=== PATIENT | female | born 2000 | race Caucasian/White ===

== ENCOUNTER 2023-02-21 08:00 | Outpatient (CLI) | payer OTHER, BC ==
[2023-02-21 18:10] LABS: BILIRUBIN,URINE NEGATIVE (NEGATIVE); GLUCOSE, URINE (UA) NEGATIVE (NEGATIVE); KETONES,URINE (UA) NEGATIVE (NEGATIVE); LEUKOCYTE ESTERASE, URINE NEGATIVE (NEGATIVE); NITRITE,URINE NEGATIVE (NEGATIVE); OCCULT BLOOD,URINE NEGATIVE (NEGATIVE); PH,URINE 6.5 PH (5.0-7.5); PROTEIN,URINE NEGATIVE (NEGATIVE); UROBILINOGEN,URINE 0.2 (NORMAL) E.U./dL (NORMAL)
[2023-02-21 18:13] LABS: CLARITY,URINE CLEAR (CLEAR)
[2023-02-21 18:53] LABS: BACTERIA,URINE None Seen /HPF (None Seen); EPITHELIAL CELLS,UR FEW Transitional /HPF (<= Few); RBC,URINE None Seen /HPF (0-5); SQUAMOUS EPITHELIAL CELL,UR RARE Squamous (<= Few); WBC,URINE 0-3 /HPF (0-5)
== END 2023-02-21 23:59 | disposition home or self-care (01) ==
LOC: LAB.WC 08:00
PROVIDERS: ATTEND Obstetrics & Gynecology
DX: Z34.90 Encounter for supervision of normal pregnancy, unspecified, unspecified trimester (principal)
CPT/HCPCS: 81001; 87086

== ENCOUNTER 2023-02-26 17:06 | Emergency (ER) | payer OTHER, BC ==
[2023-02-26 17:21] VITALS: BP 116/84; O2SAT 100
--- NOTE | 2023-02-26 18:08 | ED Physician Documentation ---
PD HPI FEMALE - Stated complaint Stated Complaint: ABD PX - Chief complaint Chief Complaint: Abd Pain - History obtained from History obtained from: Patient - Additional information Additional information: 22-year-old G3, P0 with 2 prior miscarriages presents at about 7 weeks with some brown vaginal spotting for the last couple of days. She did have some mild abdominal cramping yesterday it was more in the upper abdomen however not in the suprapubic or pelvic region. She states today she had a brown spotting when she wiped and then also had some pain behind her right shoulder blade. She googled the symptoms and there was concern for ectopic and therefore she came into the ER. She Has not had any free-flowing or bright red blood. She does not have any pain at this time. She has not had any shortness of breath, chest pain, dysuria urgency or frequency. She does report a history of ovarian cyst. She has met with the OB nurse for her intake appointment but has not yet had a first trimester ultrasound or visit with the OB. Review of Systems Constitutional: reports: Reviewed and negative Cardiac: reports: Reviewed and negative Respiratory: reports: Reviewed and negative GI: reports: Abdominal Pain. denies: Abdominal Swelling, Nausea, Vomiting : reports: Vaginal bleeding. 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) - Present Medications Home Medications: Ambulatory Orders Medication Instructions Recorded Confirmed ALPRAZolam [Xanax] 0.25 mg PO ONCE PRN 02/26/23 02/26/23 FLUoxetine [PROzac] 10 mg PO DAILY 02/26/23 02/26/23 - Allergies Allergies/Adverse Reactions: Allergies Allergy/AdvReac Type Severity Reaction Status Date / Time No Known Drug Allergies Allergy Verified 02/26/23 17:17 PD ED PE NORMAL - Vitals Vital signs reviewed: Yes - General General: Alert and oriented X 3, No acute distress, Well developed/nourished - HEENT HEENT: Atraumatic, Moist mucous membranes - Cardiac Cardiac: RRR, No murmur, No gallop, No rub - Respiratory Respiratory: No respiratory distress, Clear bilaterally - Abdomen Abdomen: Normal bowel sounds, Soft, Non tender, Non distended - Back Back: No CVA TTP - Derm Derm: Normal color, Warm and dry Results - Vitals Vitals: Vital Signs - 24 hr 02/26/23 17:14 Temperature 36.4 C L Heart Rate 76 Respiratory 16 Rate Blood Pressure 116/84 H O2 Saturation 100 Oxygen O2 Source Room air - Labs Labs: Laboratory Tests 02/26/23 02/26/23 17:56 18:12 Serum HCG, Qual POSITIVE Urine Color YELLOW Urine Clarity CLEAR Urine pH 6.0 Ur Specific [place] 1.010 Urine Protein NEGATIVE Urine Glucose (UA) NEGATIVE Urine Ketones NEGATIVE Urine Occult Blood NEGATIVE Urine Nitrite NEGATIVE Urine Bilirubin NEGATIVE Urine Urobilinogen 0.2 (NORMAL) Ur Leukocyte Esterase NEGATIVE Ur Microscopic Review NOT INDICATED Urine Culture Comments NOT INDICATED - Rads (name of study) No standard instances Relevant Findings:: Prelim report reviewed, Final report received PD Medical Decision Making - ED course Complexity details: reviewed results, re-evaluated patient, considered differential, d/w patient ED course: 22-year-old female who is a G3, P0 with prior miscarriages presents with spotting during the first trimester of . The patient had some abdominal cramping yesterday but none today but did have some pain in her right shoulder blade and was concerned for possible ectopic thus presented to the ER. On arrival here, patient is hemodynamically stable, and in no distress. She is not currently bleeding and does not have any abdominal pain. We obtained urinalysis was negative for signs of infection, her test is positive and it quantitative hCG is pending. We obtained an ultrasound to evaluate for ectopic versus miscarriage versus viable and the preliminary report report shows a intrauterine approximately 6 weeks 1 day. It is quite early during and in viability difficult to determine at this point this I have recommended the patient have a repeat ultrasound within the next 1 to 2 weeks. She states she has established with a OB and will follow-up in the clinic as soon as an appointment is available. I discussed return precautions if there are any signs of increased bleeding or increasing abdominal pain or other new concerns. Departure - Departure Disposition: 01 Home, Self Care Clinical Impression: Early stage of Spotting affecting Qualifiers: Trimester: first trimester Qualified Code(s): O26.851 - Spotting complicating p regnancy, first trimester Condition: Good Instructions: Bleeding Early Preg Comments: Your ultrasound showed an early around 6 weeks. The final report is pending but you do not have an ectopic . The is still early and I recommend that you follow-up closely with OB, you will need a repeat ultr asound in the next 1 to 2 weeks. Please return if you develop heavier bleeding or other new concerns. Forms: PCP List
[2023-02-26 18:24] LABS: BILIRUBIN,URINE NEGATIVE (NEGATIVE); CLARITY,URINE CLEAR (CLEAR); GLUCOSE, URINE (UA) NEGATIVE (NEGATIVE); KETONES,URINE (UA) NEGATIVE (NEGATIVE); LEUKOCYTE ESTERASE, URINE NEGATIVE (NEGATIVE); NITRITE,URINE NEGATIVE (NEGATIVE); OCCULT BLOOD,URINE NEGATIVE (NEGATIVE); PROTEIN,URINE NEGATIVE (NEGATIVE); UROBILINOGEN,URINE 0.2 (NORMAL) E.U./dL (NORMAL)
[2023-02-26 18:39] LABS: HCG,QUALITATIVE BLOOD POSITIVE
--- NOTE | 2023-02-26 21:00 | Ultrasound Report ---
PROCEDURE: OB First Trimester w/TV INDICATIONS: first trimester bleeding, OUTSIDE/PRIOR DATING DATA: Last menstrual period (LMP): 01/09/2023. LMP-based estimated date of delivery (PHYLLIS): 10/16/2023. First dating scan (date and location): 02/26/2023. Estimated date of delivery (PHYLLIS) from first dating scan: 10/21/2023. TECHNIQUE: Real-time scanning was performed of the fetus and maternal pelvic organs, with image documentation. Endovaginal scanning was also performed to better visualize the fetus and maternal ovaries. COMPARISON: None. FINDINGS: Anteverted uterus containing a fundal gestational sac with moderate decidual response. Mean gestation al sac diameter is 1.36 cm. The cervix is closed. Embryo: A yolk sac and single pole are identified. Average crown-rump length of the fetus is 0 .42 cm corresponding to a 6 week 1 day +/- 4 day gestation. Heart rate: 81 bpm. Other: No perigestational fluid collection. Measurement variability in dating: +/- 4 weeks by LMP, +/- 7 days by mean sac diameter (use before 6 weeks gestation if crown-rump length not able to be measured), +/- 5 days by crown-rump length (6-12 weeks gestation). Maternal organs: Ovaries are normal. There is a thick-walled corpus luteum in the right ovary. IMPRESSION: 1. Single intrauterine with heart rate of 81 beats per minutes, low. This may indicat e early or a threatened . Close clinical follow-up recommended. 2. The sonographic PHYLLIS is 10/21/2023, within 5 days of the clinical PHYLLIS. 3. Preliminary results given by the psychiatric nursing assistant to the ordering provider immediately following the st udy. Reviewed by: Eufemia Fontenot MD on 02/26/2023 8:58 PM PDT Approved by: Eufemia Fontenot MD on 02/26/2023 8:58 PM PDT Station ID: [id number]
== END 2023-02-26 20:44 | disposition home or self-care (01) ==
LOC: ED 17:06
DX: O26.851 Spotting complicating pregnancy, first trimester (principal); Z3A.01 Less than 8 weeks gestation of pregnancy; O09.291 Supervision of pregnancy with other poor reproductive or obstetric history, first trimester
CPT/HCPCS: 36415; 81001; 81003; 84702; 84703; 87086; 99283; 99284

== ENCOUNTER 2023-03-05 17:09 | Outpatient (CLI) | payer OTHER ==
--- NOTE | 2023-03-05 18:25 | Ultrasound Report ---
PROCEDURE: OB First Trimester w/TV INDICATIONS: POSITIVE TEST OUTSIDE/PRIOR DATING DATA: Last menstrual period (LMP): 01/09/2023. LMP-based estimated date of delivery (PHYLLIS): 10/16/2023. First dating scan (date and location): 02/26/2023. Estimated date of delivery (PHYLLIS) from first dating scan: 10/21/2023. TECHNIQUE: Real-time scanning was performed of the fetus and maternal pelvic organs, with image documentation. Endovaginal scanning was also performed to better visualize the fetus and maternal ovaries. COMPARISON: 02/26/2023. FINDINGS: Intrauterine gestational sac present. Embryo: Length measures 0.7 cm. Estimated gestational age based on current study is 6 weeks, 4 days. Estimate d gestational age by initial ultrasound study is 7 weeks, 1 day. Heart rate: 102 bpm. Other: There is a subchorionic bleed measures 2.4 x 2.4 x 2.7 cm in size. Measurement variability in dating: +/- 4 weeks by LMP, +/- 7 days by mean sac diameter (use before 6 weeks gestation if crown-rump length not able to be measured), +/- 5 days by crown-rump length (6-12 weeks gestation). Maternal organs: Ovaries appear within normal limits. Right-sided corpus luteum is again seen. IMPRESSION: 1. Single live intrauterine gestation with fetus noted. heart rate is 10 2 bpm. Estimated gesta tional based on current study is 6 weeks, 4 days. Estimated gestational age based on initial study of 7 weeks, 1 day. 2. Subchorionic hemorrhage as above. Reviewed by: Yaron Griffith MD on 03/05/2023 6:24 PM PDT Approved by: Yaron Griffith MD on 03/05/2023 6:24 PM PDT Station ID: [id number]
== END 2023-03-05 17:10 | disposition home or self-care (01) ==
LOC: DI 17:09
PROVIDERS: ATTEND Obstetrics & Gynecology
DX: O20.9 Hemorrhage in early pregnancy, unspecified (principal); Z3A.01 Less than 8 weeks gestation of pregnancy

== ENCOUNTER 2023-03-08 11:04 | Outpatient (CLI) | payer OTHER ==
--- NOTE | 2023-03-08 12:49 | Ultrasound Report ---
PROCEDURE: OB First Trimester INDICATIONS: HEMORRHAGE IN EARLY OUTSIDE/PRIOR DATING DATA: Last menstrual period (LMP): 01/09/2023. LMP-based estimated date of delivery (PHYLLIS): 10/16/2023. First dating scan (date and location): 02/26/2023, [facility]. Estimated date of delivery (PHYLLIS) from first dating scan: 10/21/2023. TECHNIQUE: Real-time scanning was performed of the fetus and maternal pelvic organs, with image documentation. COMPARISON: OB ultrasound dated 03/05/2023, 02/26/2023 FINDINGS: Intrauterine gestational sac present. Embryo: pole measures 0.59 cm for a gestational age of 6 weeks, 3 days Heart rate: No heart tones detected. Other: There is a 1.0 x 1.5 x 1.0 cm subchorionic hemorrhage. There is a right corpus luteal cyst which measures 1.3 x 1.4 x 1.7 cm. Measurement variability in dating: +/- 4 weeks by LMP, +/- 7 days by mean sac diameter (use before 6 weeks gestation if crown-rump length not able to be measured), +/- 5 days by crown-rump length (6-12 weeks gestation). Maternal organs: Ovaries appear within normal limits. IMPRESSION: 1. pole visualized within an intrauterine gestational sac with a gestational age of 6 weeks, 3 days. No heart tones detected. Differential considerations include intrauterine demise an d early dates. Continued sonographic surveillance recommended. 2. Small subchorionic hemorrhage. Reviewed by: Vandana Ruffin MD on 03/08/2023 12:47 PM PDT Approved by: Vandana Ruffin MD on 03/08/2023 12:47 PM PDT Station ID: [id number]
[2023-03-08 21:21] LABS: CHLAMYDIA TRACHOMATIS DNA NEGATIVE (NEGATIVE); NEISSERIA GONORRHOEAE DNA NEGATIVE (NEGATIVE); TRICHOMONAS VAGINALIS DNA NEGATIVE (NEGATIVE)
== END 2023-03-08 11:05 | disposition home or self-care (01) ==
LOC: DI 11:04
PROVIDERS: ATTEND Obstetrics & Gynecology
DX: O46.91 Antepartum hemorrhage, unspecified, first trimester (principal); Z3A.01 Less than 8 weeks gestation of pregnancy
CPT/HCPCS: 87491; 87591; 87661

== ENCOUNTER 2023-04-04 17:17 | Outpatient (CLI) | payer OTHER, BC ==
[2023-04-04 18:19] LABS: PROLACTIN 10.75 ng/mL
[2023-04-04 21:09] LABS: ESTIMATED AVERAGE GLUCOSE 97 mg/dL (70-100)
[2023-04-09 13:10] LABS: BETA-2 GLYCOPROTEIN I IGG <9 (0-20); BETA-2 GLYCOPROTEIN I IGM <9 (0-32)
== END 2023-04-04 17:18 | disposition home or self-care (01) ==
LOC: LAB 17:17
PROVIDERS: ATTEND Nurse Practitioner
DX: O03.4 Incomplete spontaneous abortion without complication (principal); O26.20 Pregnancy care for patient with recurrent pregnancy loss, unspecified trimester
CPT/HCPCS: 36415; 81220; 81329; 81599; 83036; 84146; 84702; 85598; 85613; 85732; 86146

== ENCOUNTER 2023-04-10 17:20 | Outpatient (CLI) | payer OTHER, BC ==
--- NOTE | 2023-04-11 08:12 | XRAY Report ---
PROCEDURE: Foot 3 View RT INDICATIONS: SPRAIN OF UNSPECIFIED SITE OF RIGHT FOOT TECHNIQUE: 3 views of the foot were acquired. COMPARISON: None. FINDINGS: Bones: No fractures or dislocations. Mild hallux valgus configuration of the first MTP with medial b union formation. No suspicious bony lesions. Soft tissues: Radiopaque density within the soft tissues lateral to the fifth MTP joint measuring ap proximately 7 x 1 mm with associated soft tissue swelling. IMPRESSION: 1.No acute bony abnormality. If pain persists with conservative management, consider repeat x-ray in 10-14 days or cross-sectional imaging. 2.Radiopaque density within the soft tissues lateral to the fifth MTP joint measuring approximately 7 x 1 mm with associated soft tissue swelling, concerning for foreign body. Reviewed by: Pedrito Brar MD on 04/11/2023 8:11 AM PST Approved by: Pedrito Brar MD on 04/11/2023 8:11 AM PST Station ID: [id number]
--- NOTE | 2023-04-11 08:14 | XRAY Report ---
PROCEDURE: Ankle 3 View RT INDICATIONS: SPRAIN OF UNSPECIFIED SITE OF RIGHT FOOT TECHNIQUE: 3 views of the ankle were acquired. COMPARISON: None. FINDINGS: Bones: No fractures or dislocations. Ankle mortise is normally aligned. No suspicious bony lesions . Soft tissues: No tibiotalar joint effusion. Achilles tendon appears normal. Mild soft tissue swell ing over the lateral ankle. IMPRESSION: No acute bony abnormality. If pain persists with conservative management, consider repeat x-ray in 10 -14 days or cross-sectional imaging. Reviewed by: Pedrito Brar MD on 04/11/2023 8:12 AM PST Approved by: Pedrito Brar MD on 04/11/2023 8:12 AM PST Station ID: [id number]
--- NOTE | 2023-04-11 08:15 | XRAY Report ---
PROCEDURE: Knee 3 View RT INDICATIONS: SPRAIN OF UNSPECIFIED SITE OF RIGHT KNEE TECHNIQUE: 3 views of the knee(s) were acquired. COMPARISON: None. FINDINGS: Bones: No fractures or dislocations. No suspicious bony lesions. Soft tissues: No knee joint effusion. No suspicious soft tissue calcifications or masses. IMPRESSION: No acute bony abnormality. Reviewed by: Pedrito Brar MD on 04/11/2023 8:13 AM PST Approved by: Pedrito Brar MD on 04/11/2023 8:13 AM PST Station ID: [id number]
== END 2023-04-10 17:21 | disposition home or self-care (01) ==
LOC: DI 17:20
PROVIDERS: ATTEND Physician Assistant Medical
DX: S83.91XA Sprain of unspecified site of right knee, initial encounter (principal); S93.601A Unspecified sprain of right foot, initial encounter; R93.6 Abnormal findings on diagnostic imaging of limbs; R93.89 Abnormal findings on diagnostic imaging of other specified body structures

== ENCOUNTER 2023-05-01 10:45 | Outpatient (CLI) | payer OTHER, BC | END 2023-05-01 11:00 | disposition home or self-care (01) | LOC: LAB.N 10:45 | PROVIDERS: ATTEND Physician Assistant Medical | DX: R30.0 Dysuria (principal) | CPT/HCPCS: 87086 ==

== ENCOUNTER 2023-05-31 08:00 | Outpatient (CLI) | payer OTHER, BC ==
[2023-05-31 20:27] LABS: CHLAMYDIA TRACHOMATIS DNA NEGATIVE (NEGATIVE); NEISSERIA GONORRHOEAE DNA NEGATIVE (NEGATIVE); TRICHOMONAS VAGINALIS DNA NEGATIVE (NEGATIVE)
== END 2023-05-31 23:58 | disposition home or self-care (01) ==
LOC: LAB.WC 08:00
PROVIDERS: ATTEND Nurse Practitioner
DX: Z11.3 Encounter for screening for infections with a predominantly sexual mode of transmission (principal)
CPT/HCPCS: 87491; 87591; 87661

== ENCOUNTER 2023-07-12 08:00 | Outpatient (CLI) | payer BC, OTHER ==
[2023-07-12 21:41] LABS: CHLAMYDIA TRACHOMATIS DNA NEGATIVE (NEGATIVE); NEISSERIA GONORRHOEAE DNA NEGATIVE (NEGATIVE); TRICHOMONAS VAGINALIS DNA NEGATIVE (NEGATIVE)
== END 2023-07-12 23:59 | disposition home or self-care (01) ==
LOC: LAB.WC 08:00
PROVIDERS: ATTEND Nurse Practitioner
DX: Z11.3 Encounter for screening for infections with a predominantly sexual mode of transmission (principal); D50.9 Iron deficiency anemia, unspecified; Z13.9 Encounter for screening, unspecified
CPT/HCPCS: 36415; 80053; 80061; 82728; 83540; 83721; 84443; 84466; 85025; 87491; 87591; 87661

== ENCOUNTER 2023-07-12 08:35 | Outpatient (CLI) | payer OTHER, BC ==
[2023-07-12 09:03] LABS: % IRON SATURATION 11 % (20-50); ALBUMIN 4.2 g/dL (3.2-5.5); ALBUMIN/GLOBULIN RATIO 1.8 (1.0-2.2); ALKALINE PHOSPHATASE 52 IU/L (42-121); ALT ALANINE AMINOTRANSFERASE 20 IU/L (10-60); AST ASPARTATE AMINOTRANSFERASE 19 IU/L (10-42); BILIRUBIN,TOTAL 0.4 mg/dL (0.2-1.0); BUN - BLOOD UREA NITROGEN 13 mg/dL (6-20); CALCIUM 9.4 mg/dL (8.5-10.3); CARBON DIOXIDE - CO2 31 mmol/L (21-32); CHLORIDE 105 mmol/L (101-111); CHOL/HDL RATIO 2.8 (<4.4); CHOLESTEROL 173 mg/dL; CREATININE 0.7 mg/dL (0.6-1.3); GFR - MDRD 103 (>89); GLUCOSE 83 mg/dL (74-104); HDL CHOLESTEROL 61 mg/dL; IRON 34 ug/dL (50-212); POTASSIUM 4.3 mmol/L (3.5-4.5); SODIUM 140 mmol/L (135-145); TOTAL IRON BINDING CAPACITY 309 ug/dL (250-450); TOTAL PROTEIN 6.6 g/dL (6.4-8.9); TRANSFERRIN 221 mg/dL (203-362); TRIGLYCERIDES 38 mg/dL (48-352)
[2023-07-12 09:17] LABS: THYROID STIMULATING HORMONE 1.24 uIU/mL (0.34-5.60)
[2023-07-12 09:22] LABS: FERRITIN 13.9 ng/mL (11.0-306.8)
[2023-07-12 10:03] LABS: BASOPHILS % (AUTO) 0.6 %; EOSINOPHILS # (AUTO) 0.3 10^3/uL (0.0-0.7); EOSINOPHILS % (AUTO) 5.7 %; HCT - HEMATOCRIT 40.3 % (37.0-47.0); HGB - HEMOGLOBIN 13.2 g/dL (12.0-16.0); LYMPHOCYTES # (AUTO) 1.8 10^3/uL (1.5-3.5); LYMPHOCYTES % (AUTO) 35.3 %; MEAN CORPUSCULAR HEMOGLOBIN 29.3 pg (27.0-31.0); MEAN CORPUSCULAR HGB CONC 32.8 g/dL (32.0-36.0); MEAN CORPUSCULAR VOLUME 89.6 fL (81.0-99.0); MEAN PLATELET VOLUME 10.5 fL (7.9-10.8); MONOCYTES # (AUTO) 0.5 10^3/uL (0.0-1.0); MONOCYTES % (AUTO) 8.8 %; NEUTROPHILS # (AUTO) 2.5 10^3/uL (1.5-6.6); NEUTROPHILS % (AUTO) 49.4 %; PLT - PLATELET COUNT 271 10^3/uL (130-450); RED CELL DISTRIBUTION WIDTH 13.5 % (12.0-15.0); WHITE BLOOD COUNT 5.1 x10^3/uL (4.8-10.8)
== END 2023-07-12 08:36 | disposition home or self-care (01) ==
LOC: LAB 08:35
PROVIDERS: ATTEND Physician Assistant
DX: D50.9 Iron deficiency anemia, unspecified (principal); Z13.9 Encounter for screening, unspecified
CPT/HCPCS: 36415; 80053; 80061; 82728; 83540; 83721; 84443; 84466; 85025

== ENCOUNTER 2023-07-19 08:00 | Outpatient (CLI) | payer BC, OTHER ==
[2023-07-19 21:32] LABS: BACTERIAL VAGINOSIS DNA NEGATIVE (NEGATIVE)
[2023-07-19 21:33] LABS: CANDIDA GLABRATA DNA NEGATIVE (NEGATIVE); CANDIDA GROUP DNA NEGATIVE (NEGATIVE); CANDIDA KRUSEI DNA NEGATIVE (NEGATIVE); TRICHOMONAS VAGINALIS DNA NEGATIVE (NEGATIVE)
== END 2023-07-19 23:59 | disposition home or self-care (01) ==
LOC: LAB.WC 08:00
PROVIDERS: ATTEND Nurse Practitioner
DX: N89.8 Other specified noninflammatory disorders of vagina (principal)
CPT/HCPCS: 81514

== ENCOUNTER 2023-09-17 17:13 | Emergency (ER) | payer BC, OTHER ==
[2023-09-17 17:28] VITALS: O2SAT 100
--- NOTE | 2023-09-17 17:54 | ED Physician Documentation ---
PD HPI LOWER EXT INJURY - Stated complaint Stated Complaint: R KNEE PX - Chief complaint Chief Complaint: Trauma Ext - Additional information Additional information: 23-year-old female presents emergency department for right knee pain. Patient states that she was recently on vacation playing with her children and somehow lost her balance and hurt her right knee. She tried to wait it out and walk it off she had a lot of swelling and tenderness but she was hoping it would go away. Couple days ago when she was walking down the stairs she took a step onto her right foot and she felt like her right knee completely buckled with a loud popping sensation. Most of the pain is to the lateral aspect of the knee swelling has not resolved despite icing it and pain does not improve despite Tylenol ibuprofen. She has had no history of injuries to this knee in the past no history of surgeries to this knee. 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(s) : None HEENT: None Psych: Anxiety Musculoskeletal: None Derm: None - Past Surgical History Past Surgical History: Yes Cardiovascular: Other HEENT: Tonsil/Adenoidectomy - Present Medications Home Medications: Ambulatory Orders Medication Instructions Recorded Confirmed ALPRAZolam [Xanax] 0.25 mg PO ONCE PRN 02/26/23 09/17/23 FLUoxetine [PROzac] 10 mg PO DAILY 02/26/23 09/17/23 hydrOXYzine HCL [Hydroxyzine HCl] 25 mg PO BID PRN 09/17/23 09/17/23 - Allergies Allergies/Adverse Reactions: Allergies Allergy/AdvReac Type Severity Reaction Status Date / Time No Known Drug Allergies Allergy Verified 09/17/23 17:17 - Social History Does the pt smoke?: No Smoking Status: Never smoker Does the pt drink ETOH?: Yes Does the pt have substance abuse?: No - Immunizations Immunizations are current?: Yes - POLST Patient has POLST: No PD ED PE NORMAL - Vitals Vital signs reviewed: Yes - General General: Alert and oriented X 3, No acute distress, Well developed/nourished - HEENT HEENT: Atraumatic, PERRL - Derm Derm: Normal color, Warm and dry, No rash - Psych Psych: Normal mood, Normal affect PD ED PE EXPANDED - Extremities Extremities: Right knee, Pedal Pulses Present, Other (Tenderness to the lateral knee joint line. Knee effusion. Patella intact, meniscus mobileNegative anterior drawer test). No: Pedal edema R, Decreased/absent pulse Results - Vitals Vitals: Vital Signs - 24 hr 09/17/23 09/17/23 17:17 20:42 Temperature 36.4 C L 36.5 C Heart Rate 64 62 Respiratory 16 16 Rate Blood Pressure 119/85 H 122/80 O2 Saturation 100 100 Oxygen O2 Source Room air - Rads (name of study) Right knee x-rays Relevant Findings:: Final report received, EMP independent interpretation of test, Other (No acute bony abnormalities, small joint effusion.) PD Medical Decision Making - ED course ED course: 23-year-old female presents emergency department for persistent right knee pain. Differentials include but not limited to fracture, sprain, strain, ligament tear. X-ray was complete and did not reveal any acute bony abnormalities or findings making me less suspicious for possible fracture. Patient has significant swelling to the right knee and most tenderness to the lateral joint line. B ecause of this a knee immobilizer was placed although she had negative anterior drawer test it was hard to check for laxity with the swelling of the knee. Patient was told to follow-up with Ortho outpatient for further evaluation for further imaging. She was given return precautions and told that she will most likely need more advanced imaging she is offered Tylenol ibuprofen in the emergency department which she was amenable to take and was told to continue to take this at home she declined any need for narcotics at this point in time. Crutches were given to patient she was told to be nonweightbearing until she is able to follow-up with [facility]. All questions answered safe for discharge. Departure - Departure Disposition: 01 Home, Self Care Clinical Impression: Effusion, right knee Lateral collateral ligament sprain of knee Qualifiers: Encounter type: initial encounter Laterality: right Qualified Code(s): S83.421A - Sprain of lateral collateral ligament of right knee, initial encounter Instructions: ED Effusion Knee Follow-Up: [facility] [Provider Group] Comments: Thank you for trusting us with your care. As we discussed there were no fractures or dislocation found on imaging. We have placed you in a knee immobilizer and given you crutches and I want you to follow-up with Ortho outpatient. Keep your knee elevated above your heart is much as possible to help with inflammation alternate between Tylenol ibuprofen for pain and discomfort. Forms: PCP List Discharge Date/Time: 09/17/23 20:42
[2023-09-17] MEDS: IBUPROFEN 600 MG TABLET PO STA (18:29)
[2023-09-17] MEDS: ACETAMINOPHEN 325 MG TABLET PO STA (18:29)
--- NOTE | 2023-09-17 20:21 | XRAY Report ---
PROCEDURE: Knee 4+V RT INDICATIONS: Trauma TECHNIQUE: 4 views of the knee(s) were acquired. COMPARISON: None. FINDINGS: Bones: No fractures or dislocations. No suspicious bony lesions. Soft tissues: Small knee joint effusion. No suspicious soft tissue calcifications or masses. IMPRESSION: No acute bony abnormality. Small joint effusion. Reviewed by: Mik Hoover MD on 09/17/2023 8:20 PM PDT Approved by: Mik Hoover MD on 09/17/2023 8:20 PM PDT Station ID: [id number]
[2023-09-17 20:53] VITALS: BP 122/80
== END 2023-09-17 20:42 | disposition home or self-care (01) ==
LOC: ED 17:13
DX: S83.421A Sprain of lateral collateral ligament of right knee, initial encounter (principal); M25.461 Effusion, right knee; X58.XXXA Exposure to other specified factors, initial encounter; Z79.899 Other long term (current) drug therapy
CPT/HCPCS: 73564; 99283; A9270

== ENCOUNTER 2023-09-18 17:16 | Outpatient (CLI) | payer BC, OTHER ==
--- NOTE | 2023-09-19 13:30 | XRAY Report ---
PROCEDURE: Knee 4+V RT INDICATIONS: RIGHT KNEE PAIN TECHNIQUE: 4 views of the knee(s) were acquired. COMPARISON: 09/17/2023 FINDINGS: Bones: No acute displaced fracture or dislocation. Soft tissues: Small joint effusion. Small enthesophyte at the tibial tuberosity. Possible prepatellar soft tissue swelling. IMPRESSION: No acute displaced fracture. However, there may be enthesopathy at the distal patellar tendon, as wel l as small joint effusion and prepatellar soft tissue swelling. If there is high concern for further derangement, consider MRI evaluation. Reviewed by: Efe Ramirez MD on 09/19/2023 1:29 PM PDT Approved by: Efe Ramirez MD on 09/19/2023 1:29 PM PDT Station ID: [id number]
== END 2023-09-18 17:17 | disposition home or self-care (01) ==
LOC: DI 17:16
PROVIDERS: ATTEND Physician Assistant Surgical
DX: M25.561 Pain in right knee (principal)

== ENCOUNTER 2023-10-07 14:13 | Outpatient (CLI) | payer BC, OTHER ==
[2023-10-07 15:46] LABS: BILIRUBIN,URINE NEGATIVE (NEGATIVE); GLUCOSE, URINE (UA) NEGATIVE (NEGATIVE); KETONES,URINE (UA) NEGATIVE (NEGATIVE); LEUKOCYTE ESTERASE, URINE NEGATIVE (NEGATIVE); NITRITE,URINE NEGATIVE (NEGATIVE); OCCULT BLOOD,URINE NEGATIVE (NEGATIVE); PROTEIN,URINE NEGATIVE (NEGATIVE); UROBILINOGEN,URINE 0.2 (NORMAL) E.U./dL (NORMAL)
[2023-10-07 16:08] LABS: BACTERIA,URINE Rare /HPF (None Seen); CLARITY,URINE CLEAR (CLEAR); EPITHELIAL CELLS,UR FEW Transitional /HPF (<= Few); RBC,URINE 0-5 /HPF (0-5); SQUAMOUS EPITHELIAL CELL,UR FEW Squamous (<= Few); WBC,URINE 0-3 /HPF (0-5)
== END 2023-10-07 14:14 | disposition home or self-care (01) ==
LOC: LAB 14:13
PROVIDERS: ATTEND Nurse Practitioner
DX: Z34.90 Encounter for supervision of normal pregnancy, unspecified, unspecified trimester (principal)
CPT/HCPCS: 36415; 81001; 84702; 87086

== ENCOUNTER 2023-10-09 17:23 | Outpatient (CLI) | payer BC, OTHER ==
[2023-10-09 18:05] LABS: BASOPHILS # (AUTO) 0.1 10^3/uL (0.0-0.1); BASOPHILS % (AUTO) 0.6 %; EOSINOPHILS # (AUTO) 0.3 10^3/uL (0.0-0.7); EOSINOPHILS % (AUTO) 3.7 %; HCT - HEMATOCRIT 36.9 % (37.0-47.0); LYMPHOCYTES # (AUTO) 2.4 10^3/uL (1.5-3.5); LYMPHOCYTES % (AUTO) 28.3 %; MEAN CORPUSCULAR HEMOGLOBIN 28.9 pg (27.0-31.0); MEAN CORPUSCULAR HGB CONC 32.5 g/dL (32.0-36.0); MEAN CORPUSCULAR VOLUME 88.9 fL (81.0-99.0); MEAN PLATELET VOLUME 10.3 fL (7.9-10.8); MONOCYTES # (AUTO) 0.8 10^3/uL (0.0-1.0); MONOCYTES % (AUTO) 9.3 %; NEUTROPHILS # (AUTO) 4.9 10^3/uL (1.5-6.6); PLT - PLATELET COUNT 298 10^3/uL (130-450); RED BLOOD COUNT 4.15 10^6/uL (4.20-5.40); RED CELL DISTRIBUTION WIDTH 13.9 % (12.0-15.0); WHITE BLOOD COUNT 8.5 x10^3/uL (4.8-10.8)
[2023-10-09 18:11] LABS: BILIRUBIN,URINE NEGATIVE (NEGATIVE); GLUCOSE, URINE (UA) NEGATIVE (NEGATIVE); KETONES,URINE (UA) NEGATIVE (NEGATIVE); LEUKOCYTE ESTERASE, URINE NEGATIVE (NEGATIVE); NITRITE,URINE NEGATIVE (NEGATIVE); OCCULT BLOOD,URINE NEGATIVE (NEGATIVE); PH,URINE 6.5 PH (5.0-7.5); PROTEIN,URINE NEGATIVE (NEGATIVE); UROBILINOGEN,URINE 0.2 (NORMAL) E.U./dL (NORMAL)
[2023-10-09 18:12] LABS: CLARITY,URINE CLEAR (CLEAR)
[2023-10-09 18:33] LABS: BACTERIA,URINE Rare /HPF (None Seen); RBC,URINE 0-5 /HPF (0-5); SQUAMOUS EPITHELIAL CELL,UR FEW Squamous (<= Few); WBC,URINE 0-3 /HPF (0-5)
== END 2023-10-09 17:24 | disposition home or self-care (01) ==
LOC: LAB 17:23
PROVIDERS: ATTEND Nurse Practitioner
DX: Z34.90 Encounter for supervision of normal pregnancy, unspecified, unspecified trimester (principal)
CPT/HCPCS: 36415; 81001; 84702; 85025; 86592; 86762; 86787; 86803; 86850; 86900; 86901; 87086; 87340; 87389

== ENCOUNTER 2023-10-18 07:18 | Outpatient (CLI) | payer BC, OTHER ==
--- NOTE | 2023-10-18 08:32 | Ultrasound Report ---
PROCEDURE: OB 1st Trimester w/TV INDICATIONS: POSITIVE TEST OUTSIDE/PRIOR DATING DATA: Last menstrual period (LMP): 09/06/2023. LMP-based estimated date of delivery (PHYLLIS): 06/12/2024. First dating scan (date and location): 10/18/2023. Estimated date of delivery (PHYLLIS) from first dating scan: Not applicable. TECHNIQUE: Real-time scanning was performed of the fetus and maternal pelvic organs, with image documentation. Endovaginal scanning was also performed to better visualize the fetus and maternal ovaries. COMPARISON: None. FINDINGS: Intrauterine gestational sac present. There is a gestational sac with yolk sac. No pole or heart rate is noted. Mean sac diameter is 1.3 cm, 6 weeks 1 day. Other: No perigestational fluid collection. Measurement variability in dating: +/- 4 weeks by LMP, +/- 7 days by mean sac diameter (use before 6 weeks gestation if crown-rump length not able to be measured), +/- 5 days by crown-rump length (6-12 weeks gestation). Maternal organs: Ovaries appear within normal limits. IMPRESSION: 1. Very early intrauterine with gestational sac and yolk sac. No pole or cardia c activity noted. Comment: Recommend correlation with serial beta hCGs and possible follow-up ultrasound in 1-2 weeks. Reviewed by: Ubaldo Teran MD on 10/18/2023 8:31 AM PDT Approved by: Ubaldo Teran MD on 10/18/2023 8:31 AM PDT Station ID: [id number]
== END 2023-10-18 07:19 | disposition home or self-care (01) ==
LOC: DI 07:18
PROVIDERS: ATTEND Nurse Practitioner
DX: Z34.91 Encounter for supervision of normal pregnancy, unspecified, first trimester (principal)

== ENCOUNTER 2023-11-04 06:49 | Outpatient (CLI) | payer OTHER ==
--- NOTE | 2023-11-04 15:30 | Ultrasound Report ---
PROCEDURE: OB 1st Trimester INDICATIONS: POSITIVE TEST OUTSIDE/PRIOR DATING DATA: Last menstrual period (LMP): 09/04/2023?. LMP-based estimated date of delivery (PHYLLIS): 06/12/2024. First dating scan (date and location): 10/18/2023. Estimated date of delivery (PHYLLIS) from first dating scan: 06/12/2024. TECHNIQUE: Real-time scanning was performed of the fetus and maternal pelvic organs, with image documentation. COMPARISON: OB ultrasound 10/18/2023. FINDINGS: Intrauterine gestational sac present. Embryo: [place]-rump length 1.9 cm, gestational age 8 weeks 3 days Heart rate: 166 bpm. Other: No perigestational fluid collection. A yolk sac is seen. Measurement variability in dating: +/- 4 weeks by LMP, +/- 7 days by mean sac diameter (use before 6 weeks gestation if crown-rump length not able to be measured), +/- 5 days by crown-rump length (6-12 weeks gestation). Maternal organs: Ovaries appear within normal limits. IMPRESSION: 1. [place] living intrauterine at 8 weeks 3 days based on today's crown-rump length. 2. No perigestational hemorrhage. Reviewed by: Mik Hoover MD on 11/04/2023 3:28 PM PDT Approved by: Mik Hoover MD on 11/04/2023 3:28 PM PDT Station ID: [id number]
== END 2023-11-04 06:50 | disposition home or self-care (01) ==
LOC: DI 06:49
PROVIDERS: ATTEND Nurse Practitioner
DX: Z34.91 Encounter for supervision of normal pregnancy, unspecified, first trimester (principal)

== ENCOUNTER 2023-11-11 08:00 | Outpatient (CLI) | payer OTHER ==
[2023-11-11 22:38] LABS: CHLAMYDIA TRACHOMATIS DNA NEGATIVE (NEGATIVE); NEISSERIA GONORRHOEAE DNA NEGATIVE (NEGATIVE); TRICHOMONAS VAGINALIS DNA NEGATIVE (NEGATIVE)
== END 2023-11-11 23:59 | disposition home or self-care (01) ==
LOC: LAB.WC 08:00
PROVIDERS: ATTEND Nurse Practitioner
DX: Z11.3 Encounter for screening for infections with a predominantly sexual mode of transmission (principal)
CPT/HCPCS: 87491; 87591; 87661

== ENCOUNTER 2023-11-17 11:41 | Outpatient (CLI) | payer OTHER | END 2023-11-17 11:42 | disposition home or self-care (01) | LOC: LAB 11:41 | PROVIDERS: ATTEND Nurse Practitioner | DX: O26.20 Pregnancy care for patient with recurrent pregnancy loss, unspecified trimester (principal) ==

== ENCOUNTER 2023-11-18 08:00 | Outpatient (CLI) | payer OTHER ==
[2023-11-18 16:02] LABS: BILIRUBIN,URINE NEGATIVE (NEGATIVE); GLUCOSE, URINE (UA) NEGATIVE (NEGATIVE); KETONES,URINE (UA) NEGATIVE (NEGATIVE); LEUKOCYTE ESTERASE, URINE NEGATIVE (NEGATIVE); NITRITE,URINE NEGATIVE (NEGATIVE); OCCULT BLOOD,URINE NEGATIVE (NEGATIVE); PROTEIN,URINE NEGATIVE (NEGATIVE); UROBILINOGEN,URINE 0.2 (NORMAL) E.U./dL (NORMAL)
[2023-11-18 16:26] LABS: CLARITY,URINE HAZY (CLEAR)
[2023-11-18 17:03] LABS: BACTERIA,URINE Few /HPF (None Seen); RBC,URINE 0-5 /HPF (0-5); SQUAMOUS EPITHELIAL CELL,UR MOD Squamous (<= Few); WBC,URINE 0-3 /HPF (0-5)
== END 2023-11-18 23:59 | disposition home or self-care (01) ==
LOC: LAB.WC 08:00
PROVIDERS: ATTEND Nurse Practitioner
DX: R35.0 Frequency of micturition (principal)
CPT/HCPCS: 81001; 81003; 87086

== ENCOUNTER 2024-01-15 08:00 | Outpatient (CLI) | payer OTHER ==
[2024-01-15 16:56] LABS: BILIRUBIN,URINE NEGATIVE (NEGATIVE); GLUCOSE, URINE (UA) NEGATIVE (NEGATIVE); KETONES,URINE (UA) 15 mg/dL (NEGATIVE); LEUKOCYTE ESTERASE, URINE NEGATIVE (NEGATIVE); NITRITE,URINE NEGATIVE (NEGATIVE); OCCULT BLOOD,URINE NEGATIVE (NEGATIVE); PROTEIN,URINE NEGATIVE (NEGATIVE); UROBILINOGEN,URINE 0.2 (NORMAL) E.U./dL (NORMAL)
[2024-01-15 17:00] LABS: CLARITY,URINE CLEAR (CLEAR)
[2024-01-15 17:05] LABS: BACTERIA,URINE None Seen /HPF (None Seen); RBC,URINE None Seen /HPF (0-5); SQUAMOUS EPITHELIAL CELL,UR RARE Squamous (<= Few); WBC,URINE 0-3 /HPF (0-5)
== END 2024-01-15 23:59 | disposition home or self-care (01) ==
LOC: LAB.N 08:00
PROVIDERS: ATTEND Obstetrics & Gynecology
DX: R30.0 Dysuria (principal)
CPT/HCPCS: 81001; 87086

== ENCOUNTER 2024-01-31 12:29 | Outpatient (CLI) | payer OTHER | END 2024-01-31 12:30 | disposition home or self-care (01) | LOC: LAB 12:29 | PROVIDERS: ATTEND Nurse Practitioner | DX: Z36.0 Encounter for antenatal screening for chromosomal anomalies (principal) | CPT/HCPCS: 82105 ==

== ENCOUNTER 2024-05-21 11:00 | Inpatient (IN) ==
[2024-05-21] MEDS ORDERED: LABETALOL 20 MG/4 ML SYRINGE IVP PRN ×3 (11:14)
[2024-05-21] MEDS ORDERED: fentaNYL 100 MCG/2 ML VIAL IVP PRN (11:14)
[2024-05-21] MEDS ORDERED: OXYTOCIN/SODIUM CHLORIDE 500 ML IV PRN (11:14)
[2024-05-21] MEDS ORDERED: TERBUTALINE 1 MG/ML VIAL SUBQ PRN (11:14)
[2024-05-21] MEDS ORDERED: SODIUM CHLORIDE FLUSH 0.9% 10 ML SYRINGE IVP PRN (11:14)
[2024-05-21] MEDS ORDERED: METOCLOPRAMIDE 10 MG/2 ML VIAL IVP PRN (11:14)
[2024-05-21] MEDS ORDERED: hydrALAZINE INJ 20 MG/ML VIAL IVP PRN (11:14)
[2024-05-21] MEDS ORDERED: LACTATED RINGERS 1,000 ML IV PRN (11:14)
[2024-05-21] MEDS ORDERED: METHYLERGONOVINE 0.2 MG/ML VIAL IM PRN (11:14)
[2024-05-21] MEDS ORDERED: miSOPROStoL 200 MCG TABLET BC PRN (11:14)
[2024-05-21] MEDS ORDERED: OXYTOCIN 10 UNIT/ML VIAL IM PRN (11:14)
[2024-05-21] MEDS ORDERED: lidocaine 1% 20 ML MDV ID PRN (11:14)
[2024-05-21] MEDS ORDERED: FAMOTIDINE 20 MG/2 ML VIAL IVP PRN (11:14)
[2024-05-21] MEDS ORDERED: TRANEXAMIC ACID IN NACL 1,000 MG/100 ML BAG IV PRN (11:14)
[2024-05-21] MEDS ORDERED: miSOPROStoL 200 MCG TABLET PR PRN (11:14)
[2024-05-21] MEDS ORDERED: NIFEdipine 10 MG CAPSULE PO PRN (11:14)
[2024-05-21] MEDS ORDERED: diphenhydrAMINE INJ 50 MG/ML VIAL IVP PRN ×2 (11:14→14:21)
[2024-05-21] MEDS ORDERED: CALCIUM CARBONATE CHEW 500 MG TABLET PO PRN (11:14)
[2024-05-21] MEDS ORDERED: ONDANSETRON 4 MG/2 ML VIAL ONE (11:20)
[2024-05-21 11:41] LABS: BASOPHILS % (AUTO) 0.1 %; EOSINOPHILS % (AUTO) 0.1 %; HCT - HEMATOCRIT 37.6 % (37.0-47.0); HGB - HEMOGLOBIN 11.8 g/dL (12.0-16.0); LYMPHOCYTES # (AUTO) 0.3 10^3/uL (1.5-3.5); LYMPHOCYTES % (AUTO) 2.4 %; MEAN CORPUSCULAR HEMOGLOBIN 27.4 pg (27.0-31.0); MEAN CORPUSCULAR HGB CONC 31.4 g/dL (32.0-36.0); MEAN CORPUSCULAR VOLUME 87.2 fL (81.0-99.0); MEAN PLATELET VOLUME 11.4 fL (7.9-10.8); MONOCYTES # (AUTO) 0.7 10^3/uL (0.0-1.0); MONOCYTES % (AUTO) 4.7 %; NEUTROPHILS # (AUTO) 12.8 10^3/uL (1.5-6.6); PLT - PLATELET COUNT 234 10^3/uL (130-450); RED BLOOD COUNT 4.31 10^6/uL (4.20-5.40); RED CELL DISTRIBUTION WIDTH 14.4 % (12.0-15.0); WHITE BLOOD COUNT 13.9 x10^3/uL (4.8-10.8)
[2024-05-21] MEDS: AMPICILLIN 2 GM in SODIUM CHLORIDE 0.9% MINIBAG 100 ML IV ONE (11:55)
[2024-05-21] MEDS: LACTATED RINGERS 500 ML IV ONE (12:00)
--- NOTE | 2024-05-21 12:24 | PHARMACY PROGRESS NOTE ---
Best Possible Medication History Admit Date and Time: 05/21/24 1114 Home Medications Medication Instructions Recorded Confirmed Type fluoxetine 10 mg capsule 10 mg PO DAILY 02/26/23 05/21/24 History aspirin 81 mg chewable tablet 81 mg PO QDAY 02/14/24 05/21/24 History ferrous sulfate 325 mg (65 mg 325 mg PO BID #180 tabs 03/06/24 05/21/24 Rx iron) tablet vitamins no.159-iron 1 tab PO DAILY 03/30/24 05/21/24 History fumarate 28 mg-folic acid 800 mcg tablet ( Vitamin) [facility] Statement: As the person ultimately responsible for medication therapy, providers are able to order a medication from an existing home medication list in [facility] via the "Reconcile Routine" prior to Confirmation of that medication by direct support specialist. Such practice is discouraged except when the physician, in their clinical judgment, deems that a medical need exists for a medication without regard to previous use.
[2024-05-21] MEDS: ONDANSETRON 4 MG/2 ML VIAL IVP PRN (12:30)
[2024-05-21] MEDS ORDERED: LIDOCAINE 2%-EPI 1:100000 20 ML MDV ONE (13:17)
[2024-05-21] MEDS ORDERED: ROPIVACAINE 0.2% 200 MG/100 ML BAG EP ONE (13:17)
[2024-05-21] MEDS: SODIUM CHLORIDE FLUSH 0.9% 10 ML SYRINGE IVP SCH (13:23)
--- NOTE | 2024-05-21 14:19 | ANESTHESIA PROCEDURE NOTE ---
Pre-Anesthesia VS, & Labs Diagnosis Surgical Diagnosis:: labor pain Procedure Procedure: labor epidural NPO NPO: Other Is Patient ?: Yes Lab Results Current Lab Results: Laboratory Tests 05/21/24 11:30: WBC 13.9 H, RBC 4.31, Hgb 11.8 L, Hct 37.6, MCV 87.2, MCH 27.4, MCHC 31.4 L, RDW 14.4, Plt Count 234, MPV 11.4 H, Neut # (Auto) 12.8 H, Lymph # (Auto) 0.3 L, [place]berry # (Auto) 0.7, Eos # (Auto) 0.0, Baso # (Auto) 0.0, Absolute Nucleated RBC 0.00, Nucleated RBC % 0.0 05/21/24 11:30 Meds/Allgy Home Medications Ambulatory Orders Medication Instructions Recorded Confirmed fluoxetine 10 mg capsule 10 mg PO DAILY 02/26/23 05/21/24 aspirin 81 mg chewable tablet 81 mg PO QDAY 02/14/24 05/21/24 ferrous sulfate 325 mg (65 mg 325 mg PO BID #180 tabs 03/06/24 05/21/24 iron) tablet vitamins no.159-iron 1 tab PO DAILY 03/30/24 05/21/24 fumarate 28 mg-folic acid 800 mcg tablet ( Vitamin) Allergies Allergies Allergy/AdvReac Type Severity Reaction Status Date / Time kevin Allergy Severe Rash Unverified 05/15/24 09:42 [facility] Medical History Medical History (Updated 05/15/24 @ 17:34 by Albertina Carnes CNM, RACHELL) Supervision of high risk in second trimester Frequent UTI Hx of kidney reflux-RESOLVED 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 Had ASD fixed. Was not discovered until age 10 Anemia 2 iron infusion sets (x4) yearly Afib before ablation Surgical History Surgical History (Updated 02/16/24 @ 10:33 by Albertina Carnes CNM, BUILDING TECH) History of heart surgery Right superior vena cava ballooning with cath History of radiofrequency ablation procedure for cardiac arrhythmia Social History Social History Smoking Status: Never smoker Do you dip or chew tobacco?: No Do you vape?: No Patient requests smoking cessation consult: No Do you feel safe in your home environment?: Yes Suffered physical, verbal, emotional, or financial abuse?: No History of Abuse: No Frequency: Occasional POLST Patient has POLST: No POLST Status: Full Code Plan Plan Anesthesia Type: Epidural Consent for Procedure(s) Verified and Reviewed: Yes Code Status: Attempt Resuscitation ASA Classification ASA classification: 2-Mild systemic disease Is this case an emergency?: No
[2024-05-21] MEDS ORDERED: NALBUPHINE 10 MG/ML AMP IVP PRN (14:21)
[2024-05-21] MEDS ORDERED: ONDANSETRON 4 MG/2 ML VIAL IVP PRN (14:21)
[2024-05-21] MEDS ORDERED: NALOXONE 0.4 MG/ML VIAL IVP PRN (14:21)
[2024-05-21] MEDS ORDERED: ePHEDrine 50 MG/ML VIAL IVP PRN (14:21)
[2024-05-21] MEDS: ACETAMINOPHEN 500 MG TABLET PO PRN (14:21)
--- NOTE | 2024-05-21 14:24 | HISTORY & PHYSICAL EXAMINATION ---
Admit History Smoking Status: Never smoker Other Maternal History Other Maternal History: HPI: This 23 yo @ 37+1 weeks by LMP and confirmed by 6+1 week ultrasound returned to L&D after triage earlier this morning when her cervix was 1/thick/high and posterior. She has been nauseated, some vomiting and recurrent episodes of diarrhea. Showering made her nauseated and near syncopal. She was having trouble coping at home and returned to L&D about noon. Contractions became stronger and closer together. Her repeat exam, was /-2 (intact). Desired admission. We discussed at length that given her gestational age we would not augment labor but could safely facility her delivery and plan can be adjusted based on assessment and her natural labor progress. She has been a patient of [facility] women[facility] care for . complicated by a history of ASD repair in adolescence. Well established with cardiology prior to and during . MFM recommendation included delivering locally. 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 ROS: No Headache, visual changes or right upper quadrant abdominal pain. Denies urinary urgency or dysuria. Recent URI. All other symptoms reviewed and were negative except per HPI. In the event of an emergency, accepts the administration of blood products. LMP: 09/04/2023 PHYLLIS by LMP: 06/12/2024 10/18/2023 6.1wks C/W dates (u/s based datin06/12/2024) Final PHYLLIS: 06/12/2024 FOB: Davon (spouse) PROBLEMS: Hx of A/S defect corrected at age 10. -Established with cardiology. - echo: Single anomalous pulmonary vein. Recommended cardiology consultation with echocardiogram to evaluate all venous structures in baby after within the first 2 months of life. -Has MFM appt in third trimester for herself 04/24. LDASA Rx ( indications: Nulliparous, cardiac hx) OB Hx: G1: SAB G2: SAB G3: 03/11/2023 SAB G4: Current Medical Hx: A/S Defect repair, recurrent loss Surgical Hx: A/S Defect repair, T&A. No issues with anesthesia in the past. Social Hx: Monogamous with male partner. Denies current use of alcohol or tobacco, marijuana or other recreational drugs. Reports that she is safe in current relationship. Family Hx: Denies family history of congenital anomalies, Cystic Fibrosis or chromosomal abnormalities Allergies: Mangos Medications: ASA, PNV, Fluoxetine 10mgm Hydroxyzine 25mg PRN panic Pre- Weight:160.6 BMI:24.51 Blood type: O+ Rh: Positive Antibody: Negative CBC: PLT 298 HCT 36.9 HGB 12.0 RUB: Immune VZV: Immune HBsAg: Negative HepC: NR RPR/AB-EIA: NR HIV: NR PAP:03/25/22 - normal GC/CT: Negative HSV: Denies in self and partner Genetic testing: NIPT-Negative; AFP-negative Covid: declined Flu: considering next visit FAS: completed with M 01/23. cardiology () @ 33 weeks. See report. Placenta: Anterior Cord: MARY: 21.8cm EFW:1,005g 26%tile 50gm OGCT: 111 3HR GTT: N/A TDAP: 03/24/2024 Breast Pump: Antibody screen: 3rd trimester PLT 213 HCT 31.7 HGB 10.1 3rd trimester RPR NR GBS: positive (urine) Delivery plan: Okay with all baby medications, epidural MOD: Anticipate Contraception: undecided Physical exam: Normocephalic, atraumatic Abdomen gravid, soft, nontender. EFW 3400 FHR baseline 150's, min- moderate variability, + accelerations, variable decelerations Contractions palpate moderate every 2-4 minutes with soft resting tone SVE 3/50/-2, vertex, intact (RN exam) Bilateral LE's 1+ edema Mood is good. Assessment: 23 yo @ 37+1 weeks gestation by 6+2 wk U/S Early labor FHR 150's Juancho-II GBS POSITIVE (urine) Plan: Admit to L&D Expectant management GBS prophyalxis Monitor for additional signs of viral infection. Continuous monitoring Jacuzzi PRN. Nitrous oxide PRN. Epidural PRN Maternal Request. Anticipate . Given hx of ASD repair, will monitor for fluid retention and consider diuretic . NST Procedure NST Procedure: NST Procedure Start Time 07:25 Stop Time 07:45 Meds/Allgy Home Medications Ambulatory Orders Medication Instructions Recorded Confirmed fluoxetine 10 mg capsule 10 mg PO DAILY 02/26/23 05/21/24 aspirin 81 mg chewable tablet 81 mg PO QDAY 02/14/24 05/21/24 ferrous sulfate 325 mg (65 mg 325 mg PO BID #180 tabs 03/06/24 05/21/24 iron) tablet vitamins no.159-iron 1 tab PO DAILY 03/30/24 05/21/24 fumarate 28 mg-folic acid 800 mcg tablet ( Vitamin) Allergies Allergies Allergy/AdvReac Type Severity Reaction Status Date / Time kevin Allergy Severe Rash Unverified 05/15/24 09:42 [facility] Medical History Medical History (Updated 05/15/24 @ 17:34 by Albertina Carnes, HETAL, [employer]ESS [employer] INST[employer]ER) Supervision of high risk in second trimester Frequent UTI Hx of kidney reflux-RESOLVED 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 Had ASD fixed. Was not discovered until age 10 Anemia 2 iron infusion sets (x4) yearly Afib before ablation Surgical History Surgical History (Updated 02/16/24 @ 10:33 by Albertina Carnes, HETAL, [employer] INST[employer]ER) History of heart surgery Right superior vena cava ballooning with cath History of radiofrequency ablation procedure for cardiac arrhythmia Social History Social History Smoking Status: Never smoker Do you dip or chew tobacco?: No Do you vape?: No Patient requests smoking cessation consult: No Do you feel safe in your home environment?: Yes Suffered physical, verbal, emotional, or financial abuse?: No History of Abuse: No Frequency: Occasional POLST Patient has POLST: No POLST Status: Full Code Plan for Labor Plan For Labor I expect patient to be DC'd or transferred within 96 hours.: Yes Conclusion/Plan Lab Results 05/21/24 20:30 05/21/24 20:30
[2024-05-21] MEDS: METOCLOPRAMIDE 10 MG/2 ML VIAL IVP PRN (14:34)
[2024-05-21] MEDS ORDERED: AMPICILLIN 1 GM in SODIUM CHLORIDE 0.9% MINIBAG 100 ML IV SCH (15:00)
[2024-05-21] MEDS: AMPICILLIN 1 GM in SODIUM CHLORIDE 0.9% MINIBAG 100 ML IV SCH (15:11)
--- NOTE | 2024-05-21 17:58 | PROVIDER PROGRESS NOTE ---
Labor Progress Note Labor Progress Note Labor Progress Note/Additional Text: S: Comfortable with epidural. Her is supportive at the bedside. O: FHR 155, Intermittent variable decelerations SVE approximately 2 hours prior unchanged from admission Elevated temp, 100.1. Many blankets removed. some increast to FHT baseline identified. Tylenol 1000mg PO recently given. 4.5/50/-2 A: 23 yo @ 37+1 wks gestation by 6+2 wk U/S early labor GBS positive (treatment initiated) Variable decelerations at term. 1+ non-pitting edema to bilateral extremities No SOA. P: Initiate continuous monitoring Consultation with Dr. Cuellar, variable decelerations and term gestation is an indication for delivery independent of cervical change AROM (small amount of clear fluid), and pitocin augmentation once requirements met per unit policy Continue ampicillin for GBS prophylaxis per protocol. Will encouraged rotation in bed on peanut ball with epidural. Anticipate .
--- NOTE | 2024-05-21 20:39 | PROVIDER PROGRESS NOTE ---
Labor Progress Note Labor Progress Note Labor Progress Note/Additional Text: Comfortable with epidural, Isolated tachycardia 160's-170's. Category II. Afebrile 98.0F. Difficulty tracing heart rate following a deceleration. FSE olaced. 250cc LR bolus infusing, with care not to give excessive fluids given cardiac history. Minimal cervical change, IUPC placed. With elevated baseline heartrate, variable decelerations not intermittent, no longer recurrent. Will plan for Amnioinfusion with return of variables. No foul smell to amniotic fluid. CBC, UA, CMP (for kidney function given boarderline urine output) and Respiratory panel ordered. Dr. Cuellar consulted. Agrees with to continue with established plan, fluid bolus, labs, monitor for recurrent variable and start Amnioinfusion, tylenol at 2200.
[2024-05-21 20:40] LABS: BASOPHILS % (AUTO) 0.2 %; HCT - HEMATOCRIT 32.8 % (37.0-47.0); HGB - HEMOGLOBIN 10.5 g/dL (12.0-16.0); LYMPHOCYTES # (AUTO) 0.3 10^3/uL (1.5-3.5); LYMPHOCYTES % (AUTO) 3.3 %; MEAN CORPUSCULAR HEMOGLOBIN 27.5 pg (27.0-31.0); MEAN CORPUSCULAR VOLUME 85.9 fL (81.0-99.0); MEAN PLATELET VOLUME 10.7 fL (7.9-10.8); MONOCYTES # (AUTO) 0.7 10^3/uL (0.0-1.0); MONOCYTES % (AUTO) 6.8 %; NEUTROPHILS % (AUTO) 88.9 %; PLT - PLATELET COUNT 210 10^3/uL (130-450); RED BLOOD COUNT 3.82 10^6/uL (4.20-5.40); RED CELL DISTRIBUTION WIDTH 14.9 % (12.0-15.0); WHITE BLOOD COUNT 10.2 x10^3/uL (4.8-10.8)
[2024-05-21 21:01] LABS: ALBUMIN 3.4 g/dL (3.2-5.5); ALBUMIN/GLOBULIN RATIO 1.2 (1.0-2.2); BILIRUBIN,TOTAL 0.6 mg/dL (0.2-1.0); CALCIUM 8.1 mg/dL (8.5-10.3); CREATININE 0.7 mg/dL (0.6-1.3); POTASSIUM 3.6 mmol/L (3.5-4.5); TOTAL PROTEIN 6.2 g/dL (6.4-8.9)
[2024-05-21 21:26] LABS: BILIRUBIN,URINE SMALL (NEGATIVE); GLUCOSE, URINE (UA) NEGATIVE (NEGATIVE); KETONES,URINE (UA) >=80 mg/dL (NEGATIVE); LEUKOCYTE ESTERASE, URINE NEGATIVE (NEGATIVE); NITRITE,URINE NEGATIVE (NEGATIVE); OCCULT BLOOD,URINE SMALL (NEGATIVE); PROTEIN,URINE 100 mg/dL (NEGATIVE); UROBILINOGEN,URINE 0.2 (NORMAL) E.U./dL (NORMAL)
[2024-05-21 21:27] LABS: CLARITY,URINE HAZY (CLEAR)
[2024-05-21] MEDS: LACTATED RINGERS 1,000 ML IY ONE (21:33)
[2024-05-21 21:38] LABS: BACTERIA,URINE Few /HPF (None Seen); MUCUS,URINE Few Strands; SQUAMOUS EPITHELIAL CELL,UR FEW Squamous (<= Few)
[2024-05-21] MEDS: ROPIVACAINE 0.2% 200 MG/100 ML BAG EP PRN (22:31)
[2024-05-21 22:45] LABS: B. PARAPERTUSSIS- RESP PCR PAN NOT DETECTED; B. PERTUSSIS- RESP PCR PANEL NOT DETECTED; C. PNEUMONIAE- RESP PCR PANEL NOT DETECTED; CORONAVIRUS 229E-RESP PCR NOT DETECTED; CORONAVIRUS HKU1-RESP PCR NOT DETECTED; CORONAVIRUS NL63-RESP PCR NOT DETECTED; CORONAVIRUS OC43-RESP PCR NOT DETECTED; HUMAN METAPNEUMOVIRUS NOT DETECTED; INFLUENZA A- RESP PCR PANEL NOT DETECTED; INFLUENZA B - RESP PCR PANEL NOT DETECTED; M. PNEUMONIAE- RESP PCR PANEL NOT DETECTED; PARAINFLUENZA VIRUS 1 NOT DETECTED; PARAINFLUENZA VIRUS 2 NOT DETECTED; PARAINFLUENZA VIRUS 4 NOT DETECTED; RHINOVIRUS/ENTEROVIRUS NOT DETECTED; RSV- RESP PCR PANEL NOT DETECTED; SARS-CoV-2 -RESP PCR PANEL NOT DETECTED
[2024-05-21] MEDS: OXYTOCIN/SODIUM CHLORIDE 500 ML IV SCH (22:48)
--- NOTE | 2024-05-22 03:23 | DELIVERY NOTE ---
Delivery Note Delivery Comments (Free Text/Narrative) Delivery Comments (Free Text/Narrative): This 23-year-old, G4P 0030 37+1 weeks by LMP concurrent with 6+2 week ultrasound presented in early labor at about noon today. Cervix was 3/50/-2 Vertex, intact and vertex by exam. GBS + (urine). Adequately treated (x4 doses). AROM (clear fluid) and oxytocin (max dose 10mu/min) infused. FHR pattern demonstrated 165- 170's baseline and recurrent variable decelerations. Category II prior to second stage. T-max 30 minutes prior to delivery 100.4. SVE following the temperature found C/+3 and she was set up and ready to deliver. : Normal spontaneous vaginal delivery of a viable female infant on 05/22/24 @ 0230 Tight nuchal x1 (delivered through). The was placed on maternal abdomen, stimulated, dried and placed skin to skin. Apgars 8 & 9 @ 1 & 5 minutes. The umbilical cord was allowed to stop pulsating at which time it was doubly clamped by delivering provider and cut by FOB. 3VC. Cord blood was obtained. Fundal massage and gently cord traction applied for active management of the third stage, placenta delivered spontaneously and intact and appeared normal. EBL 150cc. Placenta was not sent to pathology. Pitocin administered via IV for hemostasis and allowed to run freely. Uterine massage was performed until uterus was deemed firm. weight 2635g. Inspection of the perineum noted a second degree perineal laceration extending to the left vaginal side wall. The laceration was repaired under epidural anesthesia with running 3-0 vicryl rapide, repaired in standards fashion under sterile conditions. Upon re-inspection the patient was hemostatic. Uterus again massaged and found to be firm. Needle and sponge counts were correct. Uterine fundus firm and there is no excessive bleeding. Tissues well approximated. Skin to skin initiated. Family bonding well. Both mother and baby are in stable condition.
[2024-05-22] MEDS ORDERED: NIFEdipine 10 MG CAPSULE PO PRN (03:26)
[2024-05-22] MEDS ORDERED: NALOXONE 0.4 MG/ML VIAL IVP PRN (03:26)
[2024-05-22] MEDS ORDERED: SIMETHICONE CHEW 80 MG TABLET PO PRN (03:26)
[2024-05-22] MEDS ORDERED: hydrALAZINE INJ 20 MG/ML VIAL IVP PRN ×2 (03:26)
[2024-05-22] MEDS ORDERED: OXYTOCIN/SODIUM CHLORIDE 500 ML IV PRN (03:26)
[2024-05-22] MEDS ORDERED: ACETAMINOPHEN 500 MG TABLET PO PRN (03:26)
[2024-05-22] MEDS ORDERED: LABETALOL 20 MG/4 ML SYRINGE IVP PRN ×2 (03:26)
[2024-05-22] MEDS ORDERED: LABETALOL 5 MG/1 ML 20 ML MDV IVP PRN (03:26)
[2024-05-22] MEDS: IBUPROFEN 600 MG TABLET PO PRN (07:46)
[2024-05-22] MEDS: FLUoxetine 10 MG CAPSULE PO SCH (09:12)
[2024-05-22] MEDS: DOCUSATE SODIUM 100 MG CAPSULE PO SCH (11:01)
[2024-05-22] MEDS: FUROSEMIDE 20 MG TABLET PO ONE (13:03)
[2024-05-23 08:18] LABS: HCT - HEMATOCRIT 29.4 % (37.0-47.0); HGB - HEMOGLOBIN 9.5 g/dL (12.0-16.0); MEAN CORPUSCULAR HGB CONC 32.3 g/dL (32.0-36.0); MEAN CORPUSCULAR VOLUME 86.7 fL (81.0-99.0); MEAN PLATELET VOLUME 10.7 fL (7.9-10.8); RED BLOOD COUNT 3.39 10^6/uL (4.20-5.40); RED CELL DISTRIBUTION WIDTH 15.2 % (12.0-15.0); WHITE BLOOD COUNT 7.2 x10^3/uL (4.8-10.8)
[2024-05-23 08:35] LABS: ALBUMIN 2.8 g/dL (3.2-5.5); ALBUMIN/GLOBULIN RATIO 1.2 (1.0-2.2); BILIRUBIN,TOTAL 0.3 mg/dL (0.2-1.0); CALCIUM 7.8 mg/dL (8.5-10.3); CREATININE 0.5 mg/dL (0.6-1.3); POTASSIUM 3.7 mmol/L (3.5-4.5); TOTAL PROTEIN 5.2 g/dL (6.4-8.9)
--- NOTE | 2024-05-23 10:44 | Discharge Summary ---
Discharge Summary HPI History of Present Illness: Date of Admission: 05/21/2024 Date of Discharge: 05/23/2024 Diagnosis on admission: 23 yo @ 37+1 weeks gestation by 6+2 wk U/S Early labor FHR 150's Juancho-II GBS POSITIVE (urine) Diagnosis on Discharge 23 yo s/p @ 37+2 weeks gestation 2nd degree perineal laceration extending to left vaginal sidewall (with repair) Physical exam: Heart RRR w/o M/G/R Lungs CTAB Normal uterine involution, FF below umbilicus Scant rubra bleeding perineal discomfort. Bilateral LE's NO EDEMA Mood is good. Brief History: She is a patient of [facility] who presented at 1200 on 05/21/2024 with complaints of painful contractions. She was found to be hayley regularly. Labor progressed, she received an epidural for labor pain management and was adequately treated as a carrier of GBS. She spontaneously delivered a viable female apgars 8 and 9 at 1 and 5 minutes respectively on 05/22/2024 @ 0230. EBL 150 ml. Second degree perineal laceration extending to left vaginal sidewall (repaired). weight: 2635g. She has been doing well in her course. Considering hx of ASD repair, she was given lasix x1, and her 1+ LE edema resolved with increased urination. She is ambulating in halls and room and tolerating a regular diet. She is urinating without difficulty and her lochia is normal. Her pain is well controlled without narcotic management. She will be discharged to home today at approximately 42 hours post delivery. She has been encouraged to take IBU, tylenol and stool softeners PRN. She agrees to message provider on 05/24/2024 to discuss her recovery and daily weight. She has a telehealth visit scheduled on 05/24/2024 with myself. She has been given precautions to seek emergent care with any SOA, excessive coughing, or increasing edema. We discussed reaching out to providers if she has any new or worsening sx such as fevers, chills, abdominal pain, increasing bleeding, or foul smelling vaginal lochia. preeclamptic precautions reviewed as well. RH: + Rubella: Immune Varicella: Immune ALLERGIES Allergies Allergy/AdvReac Type Severity Reaction Status Date / Time kevin Allergy Severe Rash Verified 05/23/24 06:33 MEDICATIONS Ambulatory Orders Medication Instructions Recorded Confirmed fluoxetine 10 mg capsule 10 mg PO DAILY 02/26/23 05/21/24 ferrous sulfate 325 mg (65 mg 325 mg PO BID #180 tabs 03/06/24 05/21/24 iron) tablet vitamins no.159-iron 1 tab PO DAILY 03/30/24 05/21/24 fumarate 28 mg-folic acid 800 mcg tablet ( Vitamin) LABS 05/23/24 08:01 05/23/24 08:01 FOLLOW UP Follow Up: Reviewed labs, stable. 42 vs 48 hour discharge, will plan to discharge after 1900 tonight. desires to be discharged if possible. If baby stays, she would like to delay her discharge. doing well. 1+ edema from yesterday, now resolved Significant urine output from yesterday will contact provider on Saturday with daily weight Reviewed any concerning cardiac symptoms. Understands that weight gain, , swelling, fatigue, coughing are all reasons for immediately reaching out to provider. Understands that chest pain, shortness of breath (especially if when awaken from sleep), ongoing heart palpitations are all reasons to seek emergent care. Discharge Plan Discharge Patient Disposition: NIKKY, Self Care Prescriptions: Continued ferrous sulfate 325 mg (65 mg iron) tablet 325 mg PO BID Qty: 180 3RF fluoxetine 10 MG capsule 10 mg PO DAILY Vitamin 28 mg iron- 800 mcg tablet 1 tab PO DAILY Discontinued aspirin 81 mg tablet,chewable 81 mg PO QDAY Print Language: Mosotho Patient Instructions: Vaginal After
[2024-05-23 11:13] VITALS: O2SAT 100
--- NOTE | 2024-05-23 11:44 | PROVIDER PROGRESS NOTE ---
HPI Current : Vital Signs Temperature 36.7 C 05/23/24 08:00 Pulse Rate 79 05/23/24 10:00 Respiratory Rate 18 05/23/24 10:00 Blood Pressure 114/64 05/23/24 10:00 O2 Saturation 100 05/23/24 10:00 Procedures Service Date of procedure: 05/21/24 Procedure Details: Labor triage at 37+1 weeks. 1cm/posterior, zofran given. unchanged from previous exam. Irregular contractions. Reactive NST 150, moderate variability, + accelerations no decelerations. Reactive NST. Comfortable being discharged to home. Detailed return precautions reviewed by RN.
--- NOTE | 2024-05-23 11:46 | PROVIDER PROGRESS NOTE ---
Subjective Subjective Subjective: Subjective: Patient reports she is doing well. Comfortable WITHOUT pain management Lochia appropriate. Denies heavy bleeding. Ambulating. Pelvic and abdominal pain well-controlled. Tolerating oral intake. Diet: Regular. Voiding without difficulty. Passing flatus. Denies BM. Patient is bonding with baby in room Breast feeding going well. Denies feeling lightheaded, dizzy or excessively fatigued. Objective General: Alert, oriented, no apparent distress. Cardiovascular: No edema. Lungs: No increased work of breathing. Abdomen: Uterus firm. Below umbilicus. No guarding or rebound tenderness. Extremities: No pain on palpation. Distal pulses intact. VZV: immune Rubella: immune Assessment and Plan day 1. 23yo s/p 05/22/2024 following spontaneous onset of labor @ 37+1 weeks gestation IOL - Routine care - Hx of ASD repair as adolescent - Edema resolved. If baby not being discharge, [place] will stay until the morning. If so, will discharge after 1900 tonight (approximately 42 hours with close follow-up by provider team. Current Medications Current Medications Current Medications: Current Medications Generic Name Dose Route Start Last Admin Trade Name Freq PRN Reason Stop Dose Admin Acetaminophen 1,000 mg 05/21/24 11:14 05/23/24 01:08 Acetaminophen 500 Mg Tablet PO 1,000 mg Q8HR PRN Administration Mild Pain or Fever>38C(100.4F) Calcium Carbonate/Glycine 1,000 mg 05/21/24 11:14 Calcium Carbonate Chew 500 Mg Tablet PO Q6HR PRN Heartburn Diphenhydramine HCl 12.5 - 25 mg 05/21/24 14:21 Diphenhydramine Inj 50 Mg/Ml Vial IVP Q6HR PRN ITCHING Docusate Sodium 100 mg 05/22/24 09:00 05/23/24 09:51 Docusate Sodium 100 Mg Capsule PO Not Given BID VALERIA Ephedrine Sulfate 5 mg 05/21/24 14:21 Ephedrine 50 Mg/Ml Vial IVP Q5M PRN For SBP<100;give until SBP>100 Famotidine 20 mg 05/21/24 11:14 Famotidine 20 Mg/2 Ml Vial IVP BID PRN Heartburn Fluoxetine HCl 10 mg 05/22/24 09:00 05/23/24 09:19 Fluoxetine 10 Mg Capsule PO 10 mg DAILY VALERIA Administration Hydralazine HCl 5 - 10 mg 05/21/24 11:14 Hydralazine Inj 20 Mg/Ml Vial IVP Q20M PRN SBP> or= 160 OR DBP> or= 110 Protocol Hydralazine HCl 10 mg 05/22/24 03:26 Hydralazine Inj 20 Mg/Ml Vial IVP .ONCE PRN SBP> or= 160 OR DBP> or= 110 Protocol Ropivacaine 200 mg in 100 mls @ 0 mls/hr 05/21/24 14:21 05/22/24 02:45 Naropin 0.2% EP Infused PRN PRN Infusion PAIN Protocol Per Protocol Oxytocin/Sodium Chloride 500 mls @ 999 mls/hr 05/22/24 03:26 Pitocin/Sodium Chloride IV PRN PRN POST- HEMORR PREVENTION Protocol 999 MILLIUNIT/MIN Ibuprofen 600 mg 05/22/24 03:26 05/23/24 09:19 Ibuprofen 600 Mg Tablet PO 600 mg Q6HR PRN Administration Moderate Pain (Level 4-6) Labetalol HCl 20 - 40 mg 05/21/24 11:14 Labetalol 20 Mg/4 Ml Syringe IVP Q10M PRN SBP> or= 160 OR DBP> or= 110 Protocol Labetalol HCl 20 - 80 mg 05/22/24 03:26 Labetalol 5 Mg/1 Ml 20 Ml Mdv IVP Q10M PRN SBP> or= 160 OR DBP> or= 110 Protocol Labetalol HCl 20 mg 05/22/24 03:26 Labetalol 20 Mg/4 Ml Syringe IVP .ONCE PRN SBP >=160 and/or DBP >=110 Protocol Methylergonovine Maleate 0.2 mg 05/21/24 11:14 Methylergonovine 0.2 Mg/Ml Vial IM .ONCE PRN Hemorrhage Metoclopramide HCl 5 mg 05/21/24 11:14 Metoclopramide 10 Mg/2 Ml Vial IVP Q6HR PRN Nausea / Vomiting Naloxone HCl 0.1 mg 05/21/24 14:21 Naloxone 0.4 Mg/Ml Vial IVP Q2M PRN RR<8 Naloxone HCl 0.4 mg 05/22/24 03:26 Naloxone 0.4 Mg/Ml Vial IVP .ONCE PRN Opioid Overdose Nifedipine 10 - 20 mg 05/21/24 11:14 Nifedipine 10 Mg Capsule PO Q20M PRN SBP> or= 160 OR DBP> or= 110 Protocol Ondansetron HCl 4 mg 05/21/24 13:12 05/21/24 18:53 Ondansetron 4 Mg/2 Ml Vial IVP 4 mg Q4HR PRN Administration Nausea / Vomiting Simethicone 80 mg 05/22/24 03:26 Simethicone Chew 80 Mg Tablet PO TID PRN Gas Objective Vital Signs/Intake & Output Vital Signs: Vital Signs x48h Temp Pulse Resp BP Pulse Ox 05/23/24 10:00 79 18 114/64 100 05/23/24 08:00 36.7 C Intake & Output: Intake & Output 05/20/24 05/21/24 05/22/24 05/23/24 23:59 23:59 23:59 23:59 Intake Total 301 / 301 5453 / 5453 Output Total 125 / 125 2750 / 2750 400 / 400 Balance 176 / 176 2703 / 2703 -400 / -400 Weight (kg) 200 lb 200 lb 6.4 oz Lab Results 05/23/24 08:01 05/23/24 08:01 Other Labs: Lab Results x24hrs 05/23/24 Range/Units 08:01 WBC 7.2 (4.8-10.8) x10^3/uL RBC 3.39 L (4.20-5.40) 10^6/uL Hgb 9.5 L (12.0-16.0) g/dL Hct 29.4 L (37.0-47.0) % MCV 86.7 (81.0-99.0) fL MCH 28.0 (27.0-31.0) pg MCHC 32.3 (32.0-36.0) g/dL RDW 15.2 H (12.0-15.0) % Plt Count 157 (130-450) 10^3/uL MPV 10.7 (7.9-10.8) fL Sodium 138 (135-145) mmol/L Potassium 3.7 (3.5-4.5) mmol/L Chloride 108 (101-111) mmol/L Carbon Dioxide 25 (21-32) mmol/L Anion Gap 5.0 L (6-13) BUN 8 (6-20) mg/dL Creatinine 0.5 L (0.6-1.3) mg/dL Estimated GFR (MDRD) 150 (>89) Glucose 79 (74-104) mg/dL Calcium 7.8 L (8.5-10.3) mg/dL Total Bilirubin 0.3 (0.2-1.0) mg/dL AST 23 (10-42) IU/L ALT 16 (10-60) IU/L Alkaline Phosphatase 95 (42-121) IU/L Total Protein 5.2 L (6.4-8.9) g/dL Albumin 2.8 L (3.2-5.5) g/dL Globulin 2.4 (2.1-4.2) g/dL Albumin/Globulin Ratio 1.2 (1.0-2.2)
[2024-05-23 13:05] VITALS: BP 115/68; TEMP 98.8
--- NOTE | 2024-05-23 20:39 | Labor Flowsheet ---
Labor Flowsheet Datetime Report Generated by CPN: 05/23/2024 20:38 Datetime: 05/23/2024 13:02 VITAL SIGNS NBP Sys/Catrina/Mean (mmHg): 115 : 68 : 78 Pulse: 70 LaborFlag: Labor Datetime: 05/22/2024 03:25 MATERNAL ASSESSMENT Level of Consciousness: Alert Nausea/Vomiting: Hx of Nausea/Vomiting Datetime: 05/22/2024 02:28 Contraction Comments: IUPC d/c'd Datetime: 05/22/2024 02:14 VAGINAL EXAM Dilatation (cm): 10.0 Effacement (%): 100 Station: 3 Exam by: tresa Burckhardt Cervix, Consistency: Soft Cervix, Position: Midposition Datetime: 05/22/2024 02:12 Frequency (min): 1-3 Duration (sec): 110 Resting Tone IUP (mmHg): 5 Intensity IUP (mmHg): 80 Cody Units (mmHg): 235 ASSESSMENT A Monitor Mode: Internal Scalp Electrode FHR Baseline Rate : 170 Variability: Minimal - Undetectable to <=5 bpm Decelerations: Variable Actions for Decelerations: Pitocin Off Category: Category II Datetime: 05/22/2024 02:11 COMMUNICATION Communication: Provider at Bedside Notification Reason: Labor Status Datetime: 05/22/2024 02:09 MEDICATIONS Pitocin (milliunits): Decreased to @ 5 Datetime: 05/22/2024 01:53 Provider Notified (Name): Burckhardt Communication Comments: will continue to labor on pit, re-evaluate in 20-30 min Datetime: 05/22/2024 01:42 UTERINE ACTIVITY Monitor Mode: Internal Quality: Strong Resting Tone (Palpate): Relaxed Oxygen Method: Room Air Datetime: 05/22/2024 01:41 Stage of : Labor Datetime: 05/22/2024 01:23 PATIENT CARE IV/Blood Work: IV Bolus Started Patient Position/Activity: HOB Lowered; Left Tilt; Semi-Fowlers Datetime: 05/22/2024 01:01 FHR Baseline Changes: No Baseline Change Datetime: 05/22/2024 00:47 Membrane Status: Ruptured Amniotic Fluid Color: Clear Amniotic Fluid Amount: Moderate Datetime: 05/22/2024 00:29 Pattern: Normal: <= 5 Contractions in 10 Minutes Datetime: 05/22/2024 00:04 Pitocin Checklist: Uterus Palpates Soft between Contractions PAIN Pain Scale: 2 Pain Presence: Intermittent Pain Type: Dull; Pressure Pain Location: Perineum Pain Goal: 2 Pain Relief Measures: Epidural Given Pain Coping: Talking Through Contractions Amniotic Fluid Odor: Normal Vaginal Bleeding: Normal Show Headache: Denies RUQ Epigastric Pain: Denies Procedures: Sterile Vag Exam Comfort Measures: Breathing/Relaxation; Family Support Hygiene: Queenie Care TEACHING Plan of Care: Plan of Care Discussed Labor/Induction: Labor Stages Datetime: 05/21/2024 23:50 Patient Care Comments: throne position Datetime: 05/21/2024 23:45 Accelerations: None Datetime: 05/21/2024 23:04 Strip Reviewed by: d coffey Datetime: 05/21/2024 23:00 Temperature (C): 36.8 Temperature Route: Oral Datetime: 05/21/2024 22:54 SpO2 (%): 97 Datetime: 05/21/2024 22:16 Respirations: 18 Datetime: 05/21/2024 21:22 Amnioinfusion: Started Datetime: 05/21/2024 20:01 Monitor Interventions for UA: IUPC Inserted Monitor Interventions for FHR: FSE Applied Datetime: 05/21/2024 19:58 Comments: mnitor adjusted Provider Reviewed Strip: Yes Datetime: 05/21/2024 19:35 Anesthesia Comments: 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, may redose Datetime: 05/21/2024 19:17 I/O Interventions: Clear Liquids Given Datetime: 05/21/2024 17:40 Membranes Rupture Method: Artificial Datetime: 05/21/2024 13:40 ANESTHESIA Epidural Procedure: Test Dose Datetime: 05/21/2024 13:21 PROCEDURE TIME OUT Procedure Verify: Correct Patient Identity; Correct Side and Site are Marked; Accurate Procedure Co nsent Form; Agreement on Procedure to be Done; Correct Patient Position; Relevant Images and Results are Properly Labeled and Displayed; Addressed Need to Administer Antibiotics or Fluids for Irrigation ; Safety Precautions Based on Patient History or Medication Use Datetime: 05/21/2024 12:30 Antibiotics: Ampicillin IV 2 Gm Datetime: 05/21/2024 12:13 Membranes Ruptured Date/Time: 05/21/2024 17:40
== END 2024-05-23 20:37 | disposition home or self-care (01) | DRG 807 ==
LOC: WFO 11:00 → FBP 11:02
PROVIDERS: ADMIT Nurse Practitioner Obstetrics & Gynecology; ATTEND Nurse Practitioner Obstetrics & Gynecology